=== PATIENT | male | born 1985 | race Caucasian/White ===

== ENCOUNTER 2019-08-13 10:31 | Inpatient (IN) | payer OTHER ==
[2019-08-13 12:00] VITALS: BMI 22.8
--- NOTE | 2019-08-13 13:54 | HP ---
"COWS - Scale Resting Pulse: 1= [place] 81-100 Sweatin= No chills or Flushing Restless Observation: 1= Difficult to Sit Still Pupil Size: 0= Normal to Room Light Bone or Joint Aches: 1= Mild Discomfort Runny Nose/ Eye Tearin= Runny Nose/Eyes GI Upset > 30mins: 1= Stomach Cramp Tremor Observation: 1= Tremor [place], Not Seen Yawning Observation: 0= None Anxiety or Irritability: 1=Feels Anxious/Irritable Goose Flesh Skin: 0=Smooth Skin COWS Score: 8 CIWA Score - Admission Criteria OASAS Guidelines: Admission for Medically Managed Detox: Requires at least one of the followin. CIWA greater than 12 2. Seizures within the past 24 hours 3. Delirium tremens within the past 24 hours 4. Hallucinations within the past 24 hours 5. Acute intervention needed for co occurring medical disorder 6. Acute intervention needed for co occurring psychiatric disorder 7. Severe withdrawal that cannot be handled at a lower level of care (continued vomiting, continued diarrhea, abnormal vital signs) requiring intravenous medication and/or fluids 8. Admission [facility] Chief Complaint: Diaz Long is a 34 year old male presenting for heroin abuse. Allergies/Adverse Reactions: Allergies Allergy/AdvReac Type Severity Reaction Status Date / Time shellfish derived Allergy Intermediate Nausea Verified 08/13/19 11:53 History of Present Illness: Diaz Long is a 34 year old male presenting for heroin abuse. Heroin: 6 bags per day. Daily user. Endorses IVDU. States gets needles from pharmacy, cleans needles, denies sharing needles. Injects into his L AC. Last use was last night, less than 24 hours prior. Stated has had 5 overdoses in the past and brought back with Narcan. Has a Narcan kit and knows how to use it. Longest period of sobriety was 1.5 years. Knows that there is fentanyl in his system. Withdrawal symptoms: nausea, sweating, agitation, diarrhea. Has previously been on suboxone program in 2008. Has never been on methadone program. Denies other recent substance use. Has been to detox and rehab in the past. Never at this facility. Referred from [facility]. Plans after detox: wants to go to 28 day program and then begin outpatient program. Wanted to return to suboxone program. Medical History: denies Surgical History: denies Psychiatric History: denies Smoking: chewing tobacco, 1 tin per day Social: house, lives with parents. 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 denies legal trouble Utox: FEN ASHWIN: 0.000 The Drug Utilization Report below displays all of the controlled substance prescriptions, if any, that your patient has filled in the last twelve months. The information displayed on this report is compiled from pharmacy submissions to the Department, and accurately reflects the information as submitted by the pharmacies. This report was requested by: Maryjane Yao | Reference #: [id number] There are no results for the search terms that you entered. Less than 24 hours since last use and expected withdrawal symptoms and IVDU. Will speak to counselor regarding plans after detox. Will be admitted with methadone procotol. Exam Limitations: No Limitations - Ebola screening Have you traveled outside of the country in the last 21 days: No Have you had contact with anyone from an Ebola affected area: No Do you have a fever: No - Review of Systems Constitutional: Chills EENT: reports: Nose Congestion Respiratory: reports: No Symptoms reported Cardiac: reports: No Symptoms Reported GI: reports: Nausea : reports: No Symptoms Reported Musculoskeletal: reports: No Symptoms Reported Integumentary: reports: No Symptoms Reported Neuro: reports: No Symptoms reported Endocrine: reports: No Symptoms Reported Hematology: reports: No Symptoms Reported Psychiatric: reports: Mood/Affect Appropiate, Orientated x3, Anxious Patient History - Patient Medical History Hx Anemia: No Hx Asthma: No Hx Chronic Obstructive Pulmonary Disease (COPD): No Hx Cancer: No Hx Cardiac Disorders: No Hx Congestive Heart Failure: No Hx Hypertension: No Hx Hypercholesterolemia: No Hx Pacemaker: No HX Cerebrovascular Accident: No Hx Seizures: No Hx Dementia: No Hx Diabetes: No Hx Gastrointestinal Disorders: No Hx Liver Disease: No Hx Genitourinary Disorders: No Hx Sexually Transmitted Disorders: No Hx Renal Disease (ESRD): No Hx Thyroid Disease: No Hx Human Immunodeficiency Virus (HIV): No Hx Hepatitis C: No Hx Depression: No Hx Suicide Attempt: No Hx Bipolar Disorder: No Hx Schizophrenia: No - Patient Surgical History Hx Neurologic Surgery: No Hx Cataract Extraction: No Hx Cardiac Surgery: No Hx Lung Surgery: No Hx Breast Surgery: No Hx Breast Biopsy: No Hx Abdominal Surgery: No Hx Appendectomy: No Hx Cholecystectomy: No Hx Genitourinary Surgery: No Hx Section: No Hx Orthopedic Surgery: No - PPD History Previous Implant?: Yes PPD to be Administered?: Yes - Smoking Cessation Smoking history: Unknown if ever smoked Hx Chewing Tobacco Use: Yes (1 tin daily) Initiated information on smoking cessation: Yes 'Breaking Loose' booklet given: 08/13/19 - Substances abused Heroin Substance route: Injection Frequency: 3-6 times per week Amount used: 5 bags Age of first use: 21 Date of last use: 08/12/19 Admission Physical Exam [facility] - Vital Signs Vital Signs: Vital Signs - 24 hr 08/13/19 08/13/19 11:51 12:09 Temperature 98.1 F 98.1 F Pulse Rate 87 87 Respiratory 16 16 Rate Blood Pressure 116/70 116/70 - Physical General Appearance: Yes: Appropriately Dressed, Mild Distress HEENTM: Yes: EOMI, Normocephalic, Normal Voice, DEEPTI, Pharynx Normal Respiratory: Yes: Chest Non-Tender, Lungs Clear, Normal Breath Sounds, No Respiratory Distress, No Accessory Muscle Use Neck: Yes: No masses,lesions,Nodules, Trachea in good position Breast: Yes: Breast Exam Deferred Cardiology: Yes: Regular Rhythm, Regular Rate, S1, S2 Abdominal: Yes: Normal Bowel Sounds, Non Tender, Flat, Soft Genitourinary: Yes: Within Normal Limits Back: Yes: Normal Inspection Musculoskeletal: Yes: full range of Motion Extremities: Yes: Normal Capillary Refill, Normal Inspection, Normal Range of Motion, Non-Tender Neurological: Yes: pari mutual ticket checker II-XII NML intact, Fully Oriented, Alert, Motor Strength 5/5, Normal Mood/Affect Integumentary: Yes: Normal Color, Dry, Track [place] (noted on L AC), Other ( mildly cool extremities) - Diagnostic (1) Chewing tobacco nicotine dependence Current Visit: Yes Status: Acute (2) Heroin abuse Current Visit: Yes Status: Acute (3) IVDU (intravenous drug user) Current Visit: Yes Status: Acute Cleared for Admission [facility] - Detox or Rehab [facility] Level of Care: Medically Managed Breathalyzer - Breathalyzer Breathalyzer: 0 Urine Drug Screen - Test Device Lot number: [id number] Expiration date: 04/03/21 - Control Is test valid?: Yes - Results Drug screen NEGATIVE: No Urine drug screen results: FEN-Fentanyl Inpatient Rehab Admission - Rehab Decision to Admit Inpatient rehab admission?: No"
[2019-08-13] MEDS ORDERED: BISMUTH SUBSALICYLATE 524 MG/30 ML UD PO PRN (14:21)
[2019-08-13] MEDS ORDERED: cloNIDine HCL 0.1 MG TABLET PO PRN (14:21)
[2019-08-13] MEDS ORDERED: MENTHOL/PHENOL 1 EACH UD MM PRN (14:21)
[2019-08-13] MEDS ORDERED: ACETAMINOPHEN 325 MG TABLET (FP) PO PRN ×2 (14:21)
[2019-08-13] MEDS ORDERED: IBUPROFEN 400 MG TABLET (FP) PO PRN (14:21)
[2019-08-13] MEDS ORDERED: MAGNESIUM CITRATE 300 ML BOTTLE PO PRN (14:21)
[2019-08-13] MEDS ORDERED: MAGNESIUM HYDROX 2400MG/30ML ORAL SUSPENSION 30 ML CUP PO PRN (14:21)
[2019-08-13] MEDS ORDERED: MAG HYDROX/AL HYDROX/SIMETH 30 ML UNIT-DOSE CUP PO PRN (14:21)
--- NOTE | 2019-08-13 15:07 | PN ---
Teaching Attending Note Name of Resident: Bimal Claros ATTENDING PHYSICIAN STATEMENT I saw and evaluated the patient. I reviewed the resident's note and discussed the case with the resident. I agree with the resident's findings and plan as documented. SUBJECTIVE: 34 year old male here requesting detox from opiate use , reports fentanyl IVDU left arm , needles from pharmacy , denies sharing, denies abscess, OD x 5 , first use > 10 years ago , tried residential program [facility] 90 days, relapsed after d/c , tried Suboxone with continued use while in program , reports fentanyl use 6 bags/day latest use this morning , current symptoms as above, anticipating more severe withdrawal later in the day , states discussed with his counselor @ [facility] and is ambivalent about participating in MMTP . Pt appears irritable and anxious when interviewed . Prior inpt detox 2 years ago . 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 Utox: FEN OBJECTIVE: wnwd , anxious , irritable , Left antecubital track villegas . Vital Signs - 24 hr 08/13/19 08/13/19 11:51 12:09 Temperature 98.1 F 98.1 F Pulse Rate 87 87 Respiratory 16 16 Rate Blood Pressure 116/70 116/70 ASSESSMENT AND PLAN: Opioid dependence - mild withdrawal, pt resistant to outpt referral for MAT despite extensive education by automatic typewriter inspector.
[2019-08-13] MEDS ORDERED: METHADONE HCL 10 MG TABLET (FOR DETOX USE ONLY) PO ONE (18:00)
[2019-08-13] MEDS: THIAMINE HCL 100 MG TABLET (FP) PO SCH (22:16)
[2019-08-13] MEDS: hydrOXYzine PAMOATE 25 MG CAPSULE (FP) PO PRN (22:16)
[2019-08-13] MEDS: MELATONIN 5 MG TABLETS PO PRN (22:16)
[2019-08-14] MEDS ORDERED: METHADONE HCL 5 MG TABLET (FOR DETOX USE ONLY) PO ONE (10:00)
[2019-08-14 10:10] LABS: HEMATOCRIT 40.7 % (35.4-49); HEMOGLOBIN 13.6 GM/dL (11.7-16.9); MCH 29.4 pg (25.7-33.7); MCHC 33.4 g/dl (32.0-35.9); MEAN PLT VOLUME 8.5 fl (7.5-11.1); PLATELET COUNT 295 K/MM3 (134-434); RBC 4.63 M/mm3 (4.00-5.60); RDW 14.1 % (11.9-15.9); WHITE BLOOD COUNT 5.1 K/mm3 (4.0-10.0)
[2019-08-14] MEDS: PRENATAL VITAMINS W/ FOLIC ACID TABLET (FP) PO SCH (10:17)
[2019-08-14] MEDS: hydrOXYzine PAMOATE 25 MG CAPSULE (FP) PO PRN ×2 (10:19→22:15)
[2019-08-14 10:21] LABS: ALBUMIN 3.9 g/dl (3.4-5.0); BILIRUBIN,TOTAL 0.3 mg/dL (0.2-1); BLOOD UREA NITROGEN 8.4 mg/dL (7-18); CALCIUM 8.9 mg/dL (8.5-10.1); CREATININE 0.9 mg/dL (0.55-1.3); POTASSIUM 4.6 mmol/L (3.5-5.1)
[2019-08-14 11:30] LABS: SICKLE CELL SCREEN NEGATIVE (NEGATIVE)
[2019-08-14] MEDS ORDERED: FLU VACCINE QUAD 60 MCG/0.5 ML (MDV 19-20) IM ONE (12:00)
--- NOTE | 2019-08-14 17:53 | PN ---
BHS COWS - Scale Resting Pulse: 1= [place] 81-100 Sweatin= Chills/Flushing Restless Observation: 1= Difficult to Sit Still Pupil Size: 0= Normal to Room Light Bone or Joint Aches: 1= Mild Discomfort Runny Nose/ Eye Tearin= None GI Upset > 30mins: 0= None Tremor Observation of Outstretched Hands: 0= None Yawning Observation: 1= 1-2x During Session Anxiety or Irritability: 2=Irritable/Anxious Goose Flesh Skin: 3=Piloerection COWS Score: 10 BHS Progress Note (SOAP) Subjective: Chills, Fatigue, Interrupted Sleep. Objective: PATIENT A & O X 3, OBSERVED AMBULATING ON DETOX UNIT UNASSISTED. IN NO ACUTE DISTRESS. 08/14/19 17:52 Vital Signs Temperature 97.1 F L 08/14/19 17:44 Pulse Rate 89 08/14/19 17:44 Respiratory Rate 16 08/14/19 17:44 Blood Pressure 102/71 08/14/19 17:44 O2 Sat by Pulse Oximetry (%) Laboratory Tests 08/14/19 08/14/19 08/14/19 08:00 08:00 08:00 WBC 5.1 RBC 4.63 Hgb 13.6 Hct 40.7 MCV 88.0 MCH 29.4 MCHC 33.4 RDW 14.1 Plt Count 295 MPV 8.5 Sickle Cell Screen Negative Sodium 141 Potassium 4.6 Chloride 104 Carbon Dioxide 31 Anion Gap 6 L BUN 8.4 Creatinine 0.9 Est GFR (CKD-EPI)AfAm 128.70 Est GFR (CKD-EPI)NonAf 111.04 Random Glucose 85 Calcium 8.9 Total Bilirubin 0.3 AST 13 L ALT 20 Alkaline Phosphatase 70 Total Protein 7.0 Albumin 3.9 RPR Titer Nonreactive LABS NOTED. Assessment: 08/14/19 17:52 WITHDRAWAL SYMPTOMS. Plan: CONTINUE DETOX.
--- NOTE | 2019-08-14 20:13 | PN ---
S Progress Note Note: Psychiatry Attending's note : Patient is approached at bedside. For psychiatric interview. Mr Long is found resting comfortably. Asleep. Nursing staff made aware. Reconsult in the morning upon request.
[2019-08-14] MEDS: THIAMINE HCL 100 MG TABLET (FP) PO SCH (22:14)
[2019-08-14] MEDS: MELATONIN 5 MG TABLETS PO PRN (22:15)
[2019-08-15] MEDS ORDERED: METHADONE HCL 10 MG TABLET (FOR DETOX USE ONLY) PO ONE (10:00)
[2019-08-15] MEDS: PRENATAL VITAMINS W/ FOLIC ACID TABLET (FP) PO SCH (10:38)
--- NOTE | 2019-08-15 12:44 | CONSULT ---
[facility] Psychiatric Consult - Data Date of interview: 08/15/19 Admission source: [facility] Identifying data: First admission to [facility] for this 34 y/o male referred by [facility] for detoxification (EVARISTO issues : heroin, nicotine) . Interviewed at [address] [place] [address]). 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 Substance Abuse History: Discussed with the patient in this interview. Details in current [facility] report as follows : Smoking history: Unknown if ever smoked. Hx Chewing Tobacco Use: Yes (1 tin daily). Initiated information on smoking cessation: Yes. 'Breaking Loose' booklet given: 08/13/19. - Substances abused. Heroin. Substance route: Injection. Frequency: 3-6 times per week. Amount used: 5 bags. Age of first use: 21. Date of last use: 08/12/19 Medical History: Patient endorses good general health. Psychiatric History: No reported history of psychiatric hospitalizations. Patient indicates that he used to be treated about 10 years ago, under the diagnosis of substance induced mood disorder (self-report), with escitalopram. Last saw a psychiatrist in 2008. Lost to psychiatric OPD care. Mr Ethan denies history of suicide attempts (declares that his heroin overdoses x 5 were accidental). Physical/Sexual Abuse/Trauma History: Patient denies history of abuse. Additional Comment: Urine drug screen results: FEN-Fentanyl. Noted. Mental Status Exam - Mental Status Exam Alert and Oriented to: Time, Place, Person Cognitive Function: Good Patient Appearance: Well Groomed Mood: Hopeful, Euthymic Affect: Appropriate, Normal Range Patient Behavior: Fatigued, Appropriate, Cooperative Speech Pattern: Clear Voice Loudness: Normal Thought Process: Intact, Goal Oriented Thought Disorder: Not Present Hallucinations: Denies Suicidal Ideation: Denies Homicidal Ideation: Denies Insight/Judgement: Poor Sleep: Well Appetite: Good Muscle strength/Tone: Normal Gait/Station: Normal Psychiatric Findings - Problem List ([place] 1, 2,3) (1) Opioid use disorder Current Visit: Yes Status: Chronic (2) Nicotine dependence Current Visit: Yes Status: Chronic - Initial Treatment Plan Initial Treatment Plan: Psychoeducation. Principles of relapse prevention (MAT services) discussed with the patient. Sleep hygiene. NA meetings. Observation.
--- NOTE | 2019-08-15 12:50 | PN ---
BHS COWS - Scale Resting Pulse: 0= [place] 80 or Below Sweatin= Chills/Flushing Restless Observation: 1= Difficult to Sit Still Pupil Size: 0= Normal to Room Light Bone or Joint Aches: 1= Mild Discomfort Runny Nose/ Eye Tearin= None GI Upset > 30mins: 0= None Tremor Observation of Outstretched Hands: 0= None Yawning Observation: 1= 1-2x During Session Anxiety or Irritability: 0= None Goose Flesh Skin: 0=Smooth Skin COWS Score: 4 BHS Progress Note (SOAP) Subjective: c/o sweats and mild muscle aches. Objective: 08/15/19 12:49 Vital Signs 08/15/19 08/15/19 07:03 09:37 Temperature 96.9 F L 97.0 F L Pulse Rate 75 83 Respiratory 16 16 Rate Blood Pressure 111/74 117/74 Lab Results WBC 5.1 K/mm3 (4.0-10.0) 08/14/19 08:00 RBC 4.63 M/mm3 (4.00-5.60) 08/14/19 08:00 Hgb 13.6 GM/dL (11.7-16.9) 08/14/19 08:00 Hct 40.7 % (35.4-49) 08/14/19 08:00 MCV 88.0 fl (80-96) 08/14/19 08:00 MCHC 33.4 g/dl (32.0-35.9) 08/14/19 08:00 RDW 14.1 % (11.9-15.9) 08/14/19 08:00 Plt Count 295 K/MM3 (134-434) 08/14/19 08:00 Sodium 141 mmol/L (136-145) 08/14/19 08:00 Potassium 4.6 mmol/L (3.5-5.1) 08/14/19 08:00 Chloride 104 mmol/L (98-107) 08/14/19 08:00 Carbon Dioxide 31 mmol/L (21-32) 08/14/19 08:00 Anion Gap 6 MMOL/L (8-16) L 08/14/19 08:00 BUN 8.4 mg/dL (7-18) 08/14/19 08:00 Creatinine 0.9 mg/dL (0.55-1.3) 08/14/19 08:00 Random Glucose 85 mg/dL (74-106) 08/14/19 08:00 Calcium 8.9 mg/dL (8.5-10.1) 08/14/19 08:00 Labs noted. Assessment: 08/15/19 12:49 AOX3, in no acute respiratory distress. Full ROM, ambulating in the unit. Withdrawal symptoms. For d/c tomorrow. Plan: continue detox. D/C in AM.
[2019-08-15] MEDS: THIAMINE HCL 100 MG TABLET (FP) PO SCH (21:47)
[2019-08-15] MEDS: MELATONIN 5 MG TABLETS PO PRN (21:48)
[2019-08-15] MEDS: hydrOXYzine PAMOATE 25 MG CAPSULE (FP) PO PRN (21:48)
[2019-08-16] MEDS ORDERED: METHADONE HCL 5 MG TABLET (FOR DETOX USE ONLY) PO ONE (06:00)
[2019-08-16 09:52] VITALS: BP 118/79; PULSE 96; TEMP 96
--- NOTE | 2019-08-16 13:43 | DS ---
[facility] Detox Discharge Summary Admission Date: 08/13/19 Discharge Date: 08/16/19 - History Present History: Opioid Dependence Additional Comments: Pt is medically cleared and discharge today. Pt completed his detox protocol. Pt is encouraged to follow-up with [facility] outpatient program and also to follow-up with his pmd. Pt verbalized understanding of the information given. Pt is alert and oriented x3 and in no respiratory distress. Pertinent Past History: H/O heroin use disorder. - Physical Exam Results Vital Signs: Vital Signs Temperature 96.0 F L 08/16/19 09:15 Pulse Rate 96 H 08/16/19 09:15 Respiratory Rate 18 08/16/19 09:15 Blood Pressure 118/79 08/16/19 09:15 O2 Sat by Pulse Oximetry (%) Vital Signs 08/16/19 08/16/19 06:39 09:15 Temperature 97.1 F L 96.0 F L Pulse Rate 71 96 H Respiratory 18 18 Rate Blood Pressure 110/68 118/79 Lab Results WBC 5.1 K/mm3 (4.0-10.0) 08/14/19 08:00 RBC 4.63 M/mm3 (4.00-5.60) 08/14/19 08:00 Hgb 13.6 GM/dL (11.7-16.9) 08/14/19 08:00 Hct 40.7 % (35.4-49) 08/14/19 08:00 MCV 88.0 fl (80-96) 08/14/19 08:00 MCHC 33.4 g/dl (32.0-35.9) 08/14/19 08:00 RDW 14.1 % (11.9-15.9) 08/14/19 08:00 Plt Count 295 K/MM3 (134-434) 08/14/19 08:00 Sodium 141 mmol/L (136-145) 08/14/19 08:00 Potassium 4.6 mmol/L (3.5-5.1) 08/14/19 08:00 Chloride 104 mmol/L (98-107) 08/14/19 08:00 Carbon Dioxide 31 mmol/L (21-32) 08/14/19 08:00 Anion Gap 6 MMOL/L (8-16) L 08/14/19 08:00 BUN 8.4 mg/dL (7-18) 08/14/19 08:00 Creatinine 0.9 mg/dL (0.55-1.3) 08/14/19 08:00 Random Glucose 85 mg/dL (74-106) 08/14/19 08:00 Calcium 8.9 mg/dL (8.5-10.1) 08/14/19 08:00 Labs noted. Pertinent Admission Physical Exam Findings: withdrawal symptoms. - Treatment Hospital Course: Detox Protocol Followed, Detoxed Safely, Responded well, Discharged Condition Good - Medication Discharge Medications: Ambulatory Orders NK [No Known Home Medication] 08/13/19 - Diagnosis (1) Chewing tobacco nicotine dependence Status: Acute (2) Heroin abuse Status: Acute (3) Nicotine dependence Status: Chronic (4) Opioid use disorder Status: Chronic (5) IVDU (intravenous drug user) Status: Acute - AMA Did Patient Leave Against Medical Advice: No
== END 2019-08-16 09:18 | disposition home or self-care (01) | DRG 773 ==
LOC: YASAS 10:31 → Y3N 14:39
PROVIDERS: ADMIT Allergy & Immunology; ATTEND Allergy & Immunology
PROC: HZ2ZZZZ Detoxification Services for Substance Abuse Treatment (ICD-10-PCS; principal; 2019-08-13)
DX: F11.23 Opioid dependence with withdrawal (principal); F17.220 Nicotine dependence, chewing tobacco, uncomplicated; Z91.013 Allergy to seafood
CPT/HCPCS: 36415; 80053; 85027; 85660; 86593; Q2036